=== PATIENT | female | born 2000 | race African-American/Black ===

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

== ENCOUNTER 2021-01-10 21:46 | Emergency (ER) | payer MEDICAID ==
[~2021-01-10] VITALS: Ht 175.3 cm; Wt 61.0 kg
[~2021-01-10 21:46] MED LIST changes: +DIPH25CA83 MT; +HYDR453.3 TP; +LORA10TA7 MT
[2021-01-10] MEDS ORDERED: ACETAMINOPHEN 325MG TABLET PO ONE (23:30)
[2021-01-11] MEDS ORDERED: DEXAMETHASONE 10 MG/ML VIAL PO ONE
[2021-01-11] MEDS ORDERED: NAPR-1176 MT (02:59)
[2021-01-11] MEDS ORDERED: ACET-2708 MT (02:59)
[2021-01-11 03:00] VITALS: BP 123/75
== END 2021-01-11 03:20 | disposition home or self-care (01) ==
LOC: ER 21:46
DX: J02.9 Acute pharyngitis, unspecified (principal); Z20.822 Contact with and (suspected) exposure to COVID-19
CPT/HCPCS: 81025; 87070; 87430; 99283; C9803; J1100; U0003; U0005

== ENCOUNTER 2021-01-13 00:37 | Emergency (ER) | payer MEDICAID ==
[~2021-01-13] VITALS: Ht 175.3 cm; Wt 60.0 kg
[~2021-01-13 00:37] MED LIST changes: +ACET-2708 MT; +NAPR-1176 MT
[2021-01-13] MEDS ORDERED: PIPERACILLIN/TAZOBACTAM 3.375 G in DEXTROSE 5% WATER 50 ML IV SCH (03:00)
[2021-01-13] MEDS ORDERED: PIPERACILLIN/TAZ 3.375G PREMIX 50 ML IV ONE (03:00)
[2021-01-13] MEDS ORDERED: VANCOMYCIN 1 G PREMIX 200 ML IV ONE (03:00)
[2021-01-13] MEDS ORDERED: SODIUM CHLORIDE 0.9% 1000ML BAG (SEPSIS BOLUS) IV ONE (03:00)
[2021-01-13] MEDS ORDERED: DEXAMETHASONE 10 MG/ML VIAL IV ONE (03:00)
[2021-01-13] MEDS ORDERED: DEXT 5%/0.45% NACL KCL 20MEQ/L 1,000 ML IV ONE (03:00)
[2021-01-13] MEDS ORDERED: KETOROLAC 30MG/ML VIAL IV ONE (03:00)
[2021-01-13 03:46] LABS: BASOPHILS % 0.5 % (0.0-2.0); EOSINOPHILS % 0.5 % (0.0-5.0); HEMATOCRIT. 37.1 % (36.0-48.0); HEMOGLOBIN. 12.3 g/dL (12.0-16.0); LYMPHOCYTES % 7.3 % (20.0-50.0); MEAN CORPUSCULAR HEMOGLOBIN 28.8 pg (28.0-32.0); MEAN PLATELET VOLUME 8.2 fl (7.4-10.4); MONOCYTES % 6.9 % (2.0-8.0); NEUTROPHILS % 84.8 % (40.0-76.0); PLATELET 388 x1000/uL (130-400); RED BLOOD CELL COUNT 4.26 mill/uL (4.2-5.4); RED CELL DISTRIBUTION WIDTH 13.6 % (11.6-14.6)
[2021-01-13 03:53] LABS: CHLORIDE 105 mEq/L (98-107)
[2021-01-13 04:00] LABS: CLARITY URINE CLOUDY (CLEAR); COLOR URINE DARK YELLOW (YELLOW); KETONES URINE 1+ (NEGATIVE); LEUKOCYTE ESTERASE URINE TRACE (NEGATIVE); NITRITE URINE NEGATIVE (NEGATIVE); OCCULT BLOOD URINE NEGATIVE (NEGATIVE); PROTEIN URINE 3+ (NEGATIVE); SPECIFIC GRAVITY URINE 1.052 (1.005-1.030)
[2021-01-13 04:03] LABS: HCG SCREEN NEGATIVE
[2021-01-13 04:36] LABS: MONOTEST NEGATIVE (NEGATIVE)
[2021-01-13] MEDS ORDERED: IOHEXOL-300 100 ML BOTTLE ONE (04:44)
[2021-01-13] MEDS ORDERED: CLINDAMYCIN 600 MG in DEXTROSE 5% WATER 50 ML IV ONE (06:15)
[2021-01-13] MEDS ORDERED: CLIN300C12 MT (06:17)
[2021-01-13] MEDS ORDERED: CLINDAMYCIN 600MG PREMIX 50 ML IV SCH (06:30)
[2021-01-13 07:45] VITALS: BP 122/60
== END 2021-01-13 08:02 | disposition home or self-care (01) ==
LOC: ER 02:23
DX: J36 Peritonsillar abscess (principal); F12.10 Cannabis abuse, uncomplicated; Z20.822 Contact with and (suspected) exposure to COVID-19
CPT/HCPCS: 36415; 70491; 71045; 80053; 81003; 81025; 83605; 84703; 85025; 86308; 87040; 87070; 87086; 87426; 87430; 96365; 96375; 99285; J1100; J1885; J2543; J3370; J3490; J7030; Q9967; J7060

== ENCOUNTER 2021-02-15 10:00 | Emergency (ER) | payer MEDICAID, OTHER ==
[~2021-02-15] VITALS: Ht 175.3 cm; Wt 64.0 kg
[~2021-02-15 10:00] MED LIST changes: +CLIN300C12 MT
[2021-02-15] MEDS ORDERED: ONDANSETRON HCL 4MG/2ML INJ IV STA (10:44)
[2021-02-15] MEDS ORDERED: MORPHINE SULFATE 4 MG/ML CPJ (NOT FOR IM USE) IV STA (10:44)
[2021-02-15] MEDS ORDERED: KETOROLAC 30MG/ML VIAL IV ONE (10:45)
[2021-02-15] MEDS ORDERED: DEXAMETHASONE 10 MG/ML VIAL IV ONE (10:45)
[2021-02-15] MEDS ORDERED: SODIUM CHLORIDE 0.9% 1000ML BAG (SEPSIS BOLUS) IV ONE (10:45)
[2021-02-15 11:17] LABS: BASOPHILS % 0.7 % (0.0-2.0); EOSINOPHILS % 1.5 % (0.0-5.0); HEMATOCRIT. 35.1 % (36.0-48.0); HEMOGLOBIN. 11.6 g/dL (12.0-16.0); LYMPHOCYTES % 13.2 % (20.0-50.0); MEAN CORPUSCULAR HEMOGLOBIN 28.9 pg (28.0-32.0); MEAN CORPUSCULAR VOLUME 87.5 fL (81.0-99.0); MEAN PLATELET VOLUME 7.7 fl (7.4-10.4); MONOCYTES % 9.4 % (2.0-8.0); NEUTROPHILS % 75.2 % (40.0-76.0); PLATELET 374 x1000/uL (130-400); RED BLOOD CELL COUNT 4.02 mill/uL (4.2-5.4); RED CELL DISTRIBUTION WIDTH 14.8 % (11.6-14.6)
[2021-02-15 11:24] LABS: CHLORIDE 108 mEq/L (98-107)
[2021-02-15 11:28] LABS: PARTIAL THROMBOPLASTIN TIME 31.1 sec (23.4-31.0); PROTHROMBIN TIME 11.2 sec (9.6-11.0)
[2021-02-15 11:32] LABS: MONOTEST NEGATIVE (NEGATIVE)
[2021-02-15] MEDS ORDERED: CLINDAMYCIN 600 MG in DEXTROSE 5% WATER 50 ML IV ONE (12:30)
[2021-02-15] MEDS ORDERED: VANCOMYCIN 1 G PREMIX 200 ML IV SCH (12:30)
[2021-02-15] MEDS ORDERED: CLINDAMYCIN 600MG PREMIX 50 ML IV SCH (12:45)
[2021-02-15 13:09] VITALS: BP 104/51
[2021-02-15] MEDS ORDERED: IOHEXOL-300 100 ML BOTTLE ONE (14:36)
== END 2021-02-15 15:15 | disposition short-term general hospital (02) ==
LOC: ER 10:00
DX: J36 Peritonsillar abscess (principal); R65.10 Systemic inflammatory response syndrome (SIRS) of non-infectious origin without acute organ dysfunction; Z20.822 Contact with and (suspected) exposure to COVID-19
CPT/HCPCS: 36415; 70491; 80053; 83605; 84145; 85025; 85610; 85730; 86308; 87040; 87070; 87086; 87426; 87430; 96365; 96367; 96375; 99291; J1100; J1885; J2270; J2405; J3370; J3490; J7030; Q9967; J7060

== ENCOUNTER 2021-05-20 21:38 | Emergency (ER) | payer OTHER ==
[~2021-05-20] VITALS: Ht 175.3 cm; Wt 62.0 kg
[2021-05-20 22:09] VITALS: BP 112/71
[2021-05-20] MEDS ORDERED: IBUP-2029 MT (22:27)
[2021-05-20] MEDS ORDERED: AMOX-494 MT (22:27)
== END 2021-05-20 22:38 | disposition home or self-care (01) ==
LOC: ER 21:38
DX: J02.9 Acute pharyngitis, unspecified (principal); Z79.899 Other long term (current) drug therapy
CPT/HCPCS: 99281

== ENCOUNTER 2021-10-12 00:34 | Emergency (ER) | payer OTHER ==
[~2021-10-12] VITALS: Ht 175.3 cm; Wt 60.0 kg
[~2021-10-12 00:34] MED LIST changes: +CLIN-194 MT; -CLIN300C12 MT
[2021-10-12] MEDS ORDERED: KETOROLAC 30MG/ML VIAL IM ONE (03:15)
[2021-10-12 03:46] LABS: HEMATOCRIT. 32.9 % (36.0-48.0); HEMOGLOBIN. 10.9 g/dL (12.0-16.0); MEAN CORPUSCULAR HEMOGLOBIN 27.6 pg (28.0-32.0); MEAN PLATELET VOLUME 7.8 fl (7.4-10.4); PLATELET 268 x1000/uL (130-400); RED BLOOD CELL COUNT 3.97 mill/uL (4.2-5.4); RED CELL DISTRIBUTION WIDTH 15.8 % (11.6-14.6)
[2021-10-12 03:53] LABS: CHLORIDE 106 mEq/L (98-107)
[2021-10-12 04:04] LABS: PLATELET ESTIMATE NORMAL
[2021-10-12 04:18] VITALS: BP 101/54
[2021-10-12 04:19] LABS: CLARITY URINE CLOUDY (CLEAR); COLOR URINE YELLOW (YELLOW); KETONES URINE 1+ (NEGATIVE); LEUKOCYTE ESTERASE URINE 3+ (NEGATIVE); NITRITE URINE POSITIVE (NEGATIVE); OCCULT BLOOD URINE 2+ (NEGATIVE); PH URINE 5.5 (4.5-8.0); PROTEIN URINE 1+ (NEGATIVE); SPECIFIC GRAVITY URINE 1.015 (1.005-1.030); UROBILINOGEN URINE 0.2 E.U./dL (0.2-1.0)
[2021-10-12] MEDS ORDERED: CEFTRIAXONE SODIUM 1 G/VIAL IM ONE (04:45)
[2021-10-12] MEDS ORDERED: CEPH500C2 MT (05:10)
[2021-10-12] MEDS ORDERED: IBUP-2029 MT (05:10)
[2021-10-12] MEDS ORDERED: POTASSIUM CHLORIDE 20MEQ TABLET SR PO ONE (05:15)
== END 2021-10-12 05:39 | disposition home or self-care (01) ==
LOC: ER 00:34
DX: N10 Acute pyelonephritis (principal); E87.6 Hypokalemia; Z79.899 Other long term (current) drug therapy
CPT/HCPCS: 36415; 80053; 81003; 81025; 85025; 87077; 87086; 87186; 96372; 99284; J0696; J1885

== ENCOUNTER 2022-02-18 22:24 | Emergency (ER) | payer MEDICAID, OTHER ==
[~2022-02-18] VITALS: Ht 175.3 cm; Wt 55.8 kg
[~2022-02-18 22:24] MED LIST changes: +CEPH500C2 MT; +VALA100044 MT
[2022-02-18 22:27] VITALS: BP 120/73
[2022-02-19] MEDS ORDERED: ACETAMINOPHEN 325MG TABLET PO ONE (04:00)
[2022-02-19] MEDS: DEXAMETHASONE 4MG/ML 1ML VIAL IM SCH ×2 (04:30→06:13)
[2022-02-19 04:58] LABS: CLARITY URINE CLOUDY (CLEAR); COLOR URINE YELLOW (YELLOW); KETONES URINE 1+ (NEGATIVE); LEUKOCYTE ESTERASE URINE 3+ (NEGATIVE); NITRITE URINE NEGATIVE (NEGATIVE); OCCULT BLOOD URINE TRACE (NEGATIVE); PH URINE 5.5 (4.5-8.0); PROTEIN URINE NEGATIVE (NEGATIVE); SPECIFIC GRAVITY URINE 1.014 (1.005-1.030); UROBILINOGEN URINE 0.2 E.U./dL (0.2-1.0)
[2022-02-19] MEDS ORDERED: DOXY100C5 MT (05:55)
[2022-02-19] MEDS ORDERED: METR-167 MT (05:56)
[2022-02-19] MEDS ORDERED: CEFTRIAXONE SODIUM 500 MG/VIAL IM ONE (06:00)
[2022-02-19] MEDS ORDERED: DEXAMETHASONE 4MG/ML 1ML VIAL IM SCH (06:00)
[2022-02-19] MEDS ORDERED: LIDOCAINE HCL/PF 1% 10 MG/ML 5ML VIAL INFIL ONE (06:00)
[2022-02-19] MEDS ORDERED: AMOX1TAB16 PO (06:51)
[2022-02-21 07:07] LABS: NEISSERIA GONORRHOEAE NAA Negative (Negative)
== END 2022-02-19 06:00 | disposition home or self-care (01) ==
LOC: ER 22:24
DX: N76.0 Acute vaginitis (principal); J02.9 Acute pharyngitis, unspecified; Z11.3 Encounter for screening for infections with a predominantly sexual mode of transmission
CPT/HCPCS: 81003; 81025; 87086; 87210; 87430; 87491; 87591; 96372; 99284; J1100

== ENCOUNTER 2022-02-21 07:22 | Emergency (ER) | payer OTHER ==
[~2022-02-21] VITALS: Ht 175.3 cm; Wt 57.0 kg
[~2022-02-21 07:22] MED LIST changes: +AMOX1TAB16 PO; +DOXY100C5 MT; +METR-167 MT
[2022-02-21 07:25] VITALS: BP 110/65
[2022-02-21] MEDS ORDERED: DEXAMETHASONE 4MG TABLET PO ONE (08:45)
== END 2022-02-21 09:22 | disposition home or self-care (01) ==
LOC: ER 07:22
DX: J02.9 Acute pharyngitis, unspecified (principal)
CPT/HCPCS: 99283; J8540

== ENCOUNTER 2022-02-23 20:24 | Emergency (ER) | payer OTHER ==
[~2022-02-23] VITALS: Ht 175.3 cm; Wt 54.6 kg
[2022-02-23 21:35] VITALS: BP 110/75
[2022-02-23] MEDS ORDERED: ACET-2708 MT (22:42)
[2022-02-23] MEDS ORDERED: PSEU120T56 MT (22:42)
== END 2022-02-23 23:09 | disposition home or self-care (01) ==
LOC: ER 20:24
DX: B34.9 Viral infection, unspecified (principal); Z20.822 Contact with and (suspected) exposure to COVID-19
CPT/HCPCS: 87426; 99283; C9803

== ENCOUNTER 2022-03-08 07:13 | Emergency (ER) | payer MEDICAID, OTHER ==
[~2022-03-08] VITALS: Ht 175.3 cm; Wt 54.0 kg
[~2022-03-08 07:13] MED LIST changes: +PSEU120T56 MT
[2022-03-08] MEDS ORDERED: IBUPROFEN 600MG TABLET PO ONE (08:45)
[2022-03-08 09:07] VITALS: BP 104/59
== END 2022-03-08 10:25 | disposition home or self-care (01) ==
LOC: ER 07:13
DX: J02.9 Acute pharyngitis, unspecified (principal); R05.9 Cough, unspecified; Z79.899 Other long term (current) drug therapy; Z20.822 Contact with and (suspected) exposure to COVID-19
CPT/HCPCS: 81025; 87070; 87426; 87430; 87804; 99283

== ENCOUNTER 2022-03-13 09:06 | Emergency (ER) | payer MEDICAID, OTHER ==
[~2022-03-13] VITALS: Ht 165.1 cm; Wt 53.0 kg
[2022-03-13 09:23] VITALS: BP 10/63
[2022-03-13] MEDS ORDERED: BENZ1LOZ73 PO (11:31)
[2022-03-13] MEDS ORDERED: ACET-2708 PO (11:31)
[2022-03-13] MEDS ORDERED: METH4TAB3 MT (11:31)
[2022-03-13] MEDS ORDERED: BENZ100C86 PO (11:31)
== END 2022-03-13 11:50 | disposition home or self-care (01) ==
LOC: ER 09:06
DX: J02.9 Acute pharyngitis, unspecified (principal); Z79.899 Other long term (current) drug therapy
CPT/HCPCS: 99283

== ENCOUNTER 2022-06-11 09:48 | Emergency (ER) | payer MEDICAID, OTHER ==
[~2022-06-11] VITALS: Ht 175.3 cm; Wt 55.0 kg
[~2022-06-11 09:48] MED LIST changes: +ACET-2708 PO; +BENZ100C86 PO; +BENZ1LOZ73 PO; -DOXY-326 MT; +DOXY-456 MT; +METH4TAB3 MT
[2022-06-11 09:56] VITALS: BP 104/67
[2022-06-11] MEDS ORDERED: DOXYCYCLINE HYCLATE 100MG CAPSULE PO ONE (11:00)
[2022-06-11] MEDS ORDERED: CEFTRIAXONE SODIUM 500 MG/VIAL IM ONE (11:00)
[2022-06-11 12:15] LABS: CLARITY URINE CLEAR (CLEAR); COLOR URINE YELLOW (YELLOW); KETONES URINE NEGATIVE (NEGATIVE); LEUKOCYTE ESTERASE URINE 3+ (NEGATIVE); NITRITE URINE NEGATIVE (NEGATIVE); OCCULT BLOOD URINE TRACE (NEGATIVE); PH URINE 6.5 (4.5-8.0); PROTEIN URINE NEGATIVE (NEGATIVE); UROBILINOGEN URINE 0.2 E.U./dL (0.2-1.0)
[2022-06-11] MEDS ORDERED: METR-167 MT (12:16)
[2022-06-11] MEDS ORDERED: DOXY100T2 MT (12:20)
[2022-06-11 12:34] LABS: HCG SCREEN NEGATIVE
[2022-06-15 14:08] LABS: NEISSERIA GONORRHOEAE NAA Negative (Negative)
== END 2022-06-11 14:10 | disposition home or self-care (01) ==
LOC: ER 11:24
DX: N89.8 Other specified noninflammatory disorders of vagina (principal); Z20.2 Contact with and (suspected) exposure to infections with a predominantly sexual mode of transmission
CPT/HCPCS: 81003; 81025; 84703; 86592; 87210; 87491; 87591; 96372; 99284; J0696; Z7610

== ENCOUNTER 2022-07-05 19:27 | Emergency (ER) | payer SELFPAY ==
[~2022-07-05] VITALS: Ht 175.3 cm; Wt 59.0 kg
[~2022-07-05 19:27] MED LIST changes: +DOXY100T2 MT
[2022-07-05 19:53] VITALS: BP 101/71
[2022-07-05] MEDS ORDERED: DEXAMETHASONE 10 MG/ML VIAL IV ONE (22:45)
[2022-07-05] MEDS ORDERED: TOPUD PO (22:48)
[2022-07-05] MEDS ORDERED: MENT5.4L2 MM (22:48)
[2022-07-05] MEDS ORDERED: VISCOUS LIDOCAINE 2% 15 ML UDC PO STA (23:21)
== END 2022-07-05 23:33 | disposition home or self-care (01) ==
LOC: ER 19:27
DX: J02.9 Acute pharyngitis, unspecified (principal); Z79.899 Other long term (current) drug therapy
CPT/HCPCS: 87070; 87430; 99283

== ENCOUNTER 2022-09-03 15:28 | Emergency (ER) | payer SELFPAY ==
[~2022-09-03] VITALS: Ht 175.3 cm; Wt 56.0 kg
[~2022-09-03 15:28] MED LIST changes: +MENT5.4L2 MM; +TOPUD PO
[2022-09-03 15:58] LABS: BASOPHILS % 1.2 % (0.0-2.0); HEMATOCRIT. 36.5 % (36.0-48.0); HEMOGLOBIN. 11.9 g/dL (12.0-16.0); LYMPHOCYTES % 38.6 % (20.0-50.0); MEAN CORPUSCULAR HEMOGLOBIN 27.6 pg (28.0-32.0); MEAN CORPUSCULAR VOLUME 84.4 fL (81.0-99.0); MEAN PLATELET VOLUME 8.1 fl (7.4-10.4); MONOCYTES % 8.3 % (2.0-8.0); NEUTROPHILS % 47.9 % (40.0-76.0); PLATELET 347 x1000/uL (130-400); RED BLOOD CELL COUNT 4.32 mill/uL (4.2-5.4)
[2022-09-03 16:04] LABS: CHLORIDE 108 mEq/L (98-107)
[2022-09-03 16:18] LABS: HCG SCREEN NEGATIVE
[2022-09-03 16:37] VITALS: BP 105/54; PULSE 84; RESP 16; TEMP 98.8; O2SAT 99
== END 2022-09-03 17:39 | disposition home or self-care (01) ==
LOC: ER 15:28
DX: N93.9 Abnormal uterine and vaginal bleeding, unspecified (principal); Z79.899 Other long term (current) drug therapy
CPT/HCPCS: 36415; 80053; 81025; 84703; 85025; 86850; 86900; 99283

== ENCOUNTER 2022-09-26 08:48 | Emergency (ER) | payer SELFPAY ==
[~2022-09-26] VITALS: Ht 175.3 cm; Wt 57.0 kg
[2022-09-26 09:03] VITALS: BP 112/53; PULSE 76; RESP 16; O2SAT 100
[2022-09-26] MEDS ORDERED: DOXYCYCLINE HYCLATE 100MG CAPSULE PO ONE (09:45)
[2022-09-26] MEDS ORDERED: CEFTRIAXONE SODIUM 1 G/VIAL IM ONE (09:45)
[2022-09-26] MEDS ORDERED: DOXY100C5 PO (10:02)
[2022-09-26 10:15] VITALS: TEMP 98.5
[2022-09-26] MEDS ORDERED: ACETAMINOPHEN 325MG TABLET PO ONE (10:15)
[2022-09-26] MEDS ORDERED: FLUCONAZOLE 100MG TABLET PO ONE (10:15)
[2022-09-30 08:10] LABS: NEISSERIA GONORRHOEAE NAA Negative (Negative)
== END 2022-09-26 10:49 | disposition home or self-care (01) ==
LOC: ER 08:56
DX: J02.9 Acute pharyngitis, unspecified (principal); A64 Unspecified sexually transmitted disease; Z79.899 Other long term (current) drug therapy
CPT/HCPCS: 87491; 87591; 96372; 99284; J0696; Z7610

== ENCOUNTER 2022-12-18 08:03 | Emergency (ER) | payer BC, MEDICAID ==
[~2022-12-18] VITALS: Ht 176.5 cm; Wt 59.0 kg
[~2022-12-18 08:03] MED LIST changes: +DOXY100C5 PO
[2022-12-18 08:08] VITALS: BP 108/63; O2SAT 100
[2022-12-18 09:08] LABS: CLARITY URINE CLEAR (CLEAR); COLOR URINE YELLOW (YELLOW); GLUCOSE URINE NEGATIVE (NEGATIVE); KETONES URINE NEGATIVE (NEGATIVE); LEUKOCYTE ESTERASE URINE TRACE (NEGATIVE); NITRITE URINE NEGATIVE (NEGATIVE); OCCULT BLOOD URINE NEGATIVE (NEGATIVE); PROTEIN URINE NEGATIVE (NEGATIVE); SPECIFIC GRAVITY URINE 1.011 (1.005-1.030); UROBILINOGEN URINE 0.2 E.U./dL (0.2-1.0)
[2022-12-18 09:10] LABS: YEAST URINE NONE SEEN
[2022-12-18] MEDS ORDERED: LIDOCAINE HCL 1% 20ML VIAL (Pyxis) INJ INFIL ONE (09:15)
[2022-12-18] MEDS ORDERED: CEFTRIAXONE SODIUM 500 MG/VIAL IM ONE (09:15)
[2022-12-18 09:23] LABS: BACTERIA URINE FEW; RBC URINE 0-2 /hpf (0-2); SQUAMOUS EPITHELIAL CELL URINE FEW /lpf (RARE/1+)
[2022-12-18 09:33] VITALS: PULSE 100; RESP 16; TEMP 97.4
== END 2022-12-18 09:37 | disposition home or self-care (01) ==
LOC: ER 08:03
DX: J02.9 Acute pharyngitis, unspecified (principal); N89.8 Other specified noninflammatory disorders of vagina; Z79.899 Other long term (current) drug therapy
CPT/HCPCS: 81003; 81025; 87210; 87491; 96372; 99284; J0696; J3490; Z7610 ×2